=== PATIENT | male | born 1965 | race Caucasian/White ===

== ENCOUNTER 2023-05-11 12:54 | Inpatient (IN) | payer MEDICAID ==
[~2023-05-11] VITALS: Ht 157.5 cm; Wt 89.0 kg
[~2023-05-11 12:54] MED LIST: AMIO200T68 PO; APIX5TAB PO; DIGO125T72 PO; METO25XL PO
[2023-05-11 13:48] LABS: BASOPHILS % (AUTO) 0.8 % (0.0-2.0); EOSINOPHILS % (AUTO) 0.7 % (1.0-6.0); HEMATOCRIT 40.2 % (41-53); LYMPHOCYTES % (AUTO) 10.9 % (22.0-44.0); MEAN CORPUSCULAR HEMOGLOBIN 29.4 pg (26.0-34.0); MEAN CORPUSCULAR HGB CONC 32.2 G/dL (31.0-37.0); MEAN CORPUSCULAR VOLUME 91 fL (80-100); MONOCYTES % (AUTO) 10.5 % (2.0-9.0); NEUTROPHILS # (AUTO) 7.3 K/uL (1.8-7.7); NEUTROPHILS % (AUTO) 77.1 % (40.0-70.0); PLATELET COUNT (AUTO) 290 K/uL (150-450); RED CELL DISTRIBUTION WIDTH 16.6 % (11.5-14.5); WHITE BLOOD COUNT (AUTO) 9.5 K/uL (4.5-11.0)
[2023-05-11 13:58] LABS: ANION GAP 12 mmol/L (8-16); CALCIUM, TOTAL 7.9 mg/dL (8.8-10.5); CARBON DIOXIDE 21 mmol/L (22-29); CHLORIDE 104 mmol/L (98-107); CREATININE 1.09 mg/dL (0.60-1.30); GLOMERULAR FILTR. RATE CALC > 60 mL/min (>60); GLUCOSE,RANDOM 147 mg/dL (70-110); POTASSIUM 3.3 mmol/L (3.5-5.1); SODIUM SERUM 137 mmol/L (136-145); UREA NITROGEN, BLOOD 11 mg/dL (7-18)
[2023-05-11 14:04] LABS: ALANINE AMINOTRANSFERASE 24 U/L (12-78); ALBUMIN 2.8 g/dL (3.4-5.0); ALKALINE PHOSPHATASE 166 U/L (46-116); ASPARTATE AMINOTRANSFERASE 35 U/L (15-37); BILIRUBIN,TOTAL 1.2 mg/dL (0.1-1.0); TOTAL PROTEIN, SERUM 6.1 g/dL (6.4-8.2)
[2023-05-11 14:05] LABS: TROPONIN I-HIGH SENSITIVITY 15 ng/L (<76)
[2023-05-11 14:08] LABS: ALCOHOL, BLOOD (SERUM) < 3 mg/dL (0-10); LACTIC ACID 3.3 mmol/L (0.4-2.0)
[2023-05-11 14:53] LABS: INR 1.5 (0.9-1.1); PROTHROMBIN TIME 15.5 SEC (9.4-11.6)
[2023-05-11] MEDS ORDERED: FUROSEMIDE 40 MG/4 ML VIAL IVP ONE (15:30)
[2023-05-11] MEDS ORDERED: LORazepam 2 MG/ML VIAL IVP PRN (15:45)
[2023-05-11] MEDS ORDERED: ACETAMINOPHEN 325 MG TABLET PO PRN (15:45)
[2023-05-11] MEDS ORDERED: ONDANSETRON HCL 4 MG/2 ML VIAL IVP PRN (15:45)
[2023-05-11] MEDS ORDERED: POTASSIUM CHLORIDE 20 MEQ ER TABLET PO PRN (15:45)
[2023-05-11] MEDS ORDERED: POTASSIUM CHL 10 MEQ/WATER 50 ML IV PRN (15:45)
[2023-05-11] MEDS ORDERED: DEXTROSE 50%-WATER 25 GM/50 ML SYRINGE IVP PRN (16:00)
[2023-05-11] MEDS: CefTRIAXone 1 GM/DEXTROSE 50 ML IV SCH (16:05)
[2023-05-11] MEDS: MULTIVITAMINS WITH MINERALS, THERAPEUTIC TABLET PO SCH (16:05)
[2023-05-11 16:52] LABS: COVID AG,FIA SOURCE NASAL SWAB
[2023-05-11 16:59] LABS: APPEARANCE,URINE CLEAR (CLEAR); BILIRUBIN,URINE NEGATIVE (NEGATIVE); COLOR,URINE YELLOW (YELLOW); GLUCOSE, URINE (UA) NEGATIVE (NEGATIVE); KETONES,URINE NEGATIVE (NEGATIVE); LEUKOCYTE ESTERASE ,URINE NEGATIVE (NEGATIVE); NITRATE,URINE NEGATIVE (NEGATIVE); OCCULT BLOOD,URINE NEGATIVE (NEGATIVE); PH,URINE 5.5 (5.0-8.0); PROTEIN,URINE 30-70 mg/dL (NEGATIVE)
[2023-05-11 17:05] LABS: ALCOHOL, URINE DRUG SCREEN NEGATIVE (NEGATIVE); AMPHET/METH SCREEN,URINE NEGATIVE (NEGATIVE); BARBITURATE SCREEN, URINE NEGATIVE (NEGATIVE); BENZODIAZEPINES SCREEN,URINE NEGATIVE (NEGATIVE); CANNABINOID SCREEN,URINE NEGATIVE (NEGATIVE); COCAINE SCREEN,URINE NEGATIVE (NEGATIVE); METHADONE SCREEN, URINE NEGATIVE (NEGATIVE); OPIATE SCREEN,URINE NEGATIVE (NEGATIVE); PH,URINE DRUG SCREEN 5.5 (5.0-8.0); PHENCYCLIDINE SCREEN,URINE NEGATIVE (NEGATIVE)
[2023-05-11 17:17] LABS: SARS-COV2 (COVID) ANTIGEN,FIA Negative (Negative)
[2023-05-11 19:16] LABS: GLUCOMETER DEV NAME(LOC) ER.6; GLUCOSE,POINT OF CARE 136 MG/DL (70-110)
[2023-05-11] MEDS: DOCUSATE SODIUM 100 MG CAPSULE PO SCH (20:40)
[2023-05-11] MEDS: FAMOTIDINE 20 MG TABLET PO SCH (20:40)
[2023-05-11 21:26] VITALS: BP 101/74; PULSE 121; RESP 20; TEMP 97.8
[2023-05-11 23:11] LABS: GLUCOMETER DEV NAME(LOC) 5N.2C; GLUCOSE,POINT OF CARE 96 MG/DL (70-110)
[2023-05-12 00:03] VITALS: BP 109/78; PULSE 103; RESP 20; TEMP 97.5
[2023-05-12 04:30] VITALS: BP 118/83; PULSE 112; RESP 20; TEMP 97.9
[2023-05-12 07:08] LABS: ANION GAP 7 mmol/L (8-16); CALCIUM, TOTAL 8.1 mg/dL (8.8-10.5); CARBON DIOXIDE 26 mmol/L (22-29); CHLORIDE 100 mmol/L (98-107); CREATININE 0.88 mg/dL (0.60-1.30); GLOMERULAR FILTR. RATE CALC > 60 mL/min (>60); GLUCOSE,RANDOM 79 mg/dL (70-110); POTASSIUM 3.5 mmol/L (3.5-5.1); SODIUM SERUM 133 mmol/L (136-145); UREA NITROGEN, BLOOD 10 mg/dL (7-18)
[2023-05-12 07:59] VITALS: BP 111/76; PULSE 113; RESP 19; TEMP 98.3
[2023-05-12] MEDS: DOCUSATE SODIUM 100 MG CAPSULE PO SCH ×2 (09:20→21:12)
[2023-05-12] MEDS: FAMOTIDINE 20 MG TABLET PO SCH ×2 (09:20→21:12)
[2023-05-12] MEDS: MULTIVITAMINS WITH MINERALS, THERAPEUTIC TABLET PO SCH (09:20)
[2023-05-12 11:37] VITALS: BP 122/86; PULSE 119; RESP 18; TEMP 98.1
[2023-05-12 11:57] LABS: GLUCOMETER DEV NAME(LOC) 5N.2C; GLUCOSE,POINT OF CARE 89 MG/DL (70-110)
[2023-05-12] MEDS ORDERED: PERFLUTREN PROTEIN-A MICROSPHERES 0.22 MG/ML 3 ML VIAL IVP ONE (14:00)
[2023-05-12 16:06] VITALS: BP 105/69; PULSE 89; RESP 18; TEMP 98
[2023-05-12] MEDS ORDERED: SODIUM CHLORIDE 0.9% 250 ML IV ONE (16:14)
[2023-05-12] MEDS: CefTRIAXone 1 GM/DEXTROSE 50 ML IV SCH (16:15)
[2023-05-12] MEDS: INSULIN LISPRO 100 UNITS/ML SQ PRN ×2 (17:55→21:13)
[2023-05-12] MEDS ORDERED: AMIODARONE HCL 150 MG in DEXTROSE 5%-WATER 97 ML IV ONE (18:00)
[2023-05-12] MEDS ORDERED: FUROSEMIDE 20 MG/2 ML VIAL IVP ONE (18:15)
[2023-05-12] MEDS ORDERED: AMIODARONE HCL 360 MG in DEXTROSE 5%-WATER 242.8 ML IV ONE (18:15)
[2023-05-12 19:56] VITALS: BP 109/79; PULSE 125; RESP 18; TEMP 98
[2023-05-12 20:06] LABS: GLUCOMETER DEV NAME(LOC) 5N.2C; GLUCOSE,POINT OF CARE 121 MG/DL (70-110)
[2023-05-12] MEDS: APIXABAN 5 MG TABLET PO SCH (21:12)
[2023-05-13 00:01] VITALS: BP 110/80; PULSE 130; RESP 20; TEMP 97.6
[2023-05-13] MEDS ORDERED: AMIODARONE HCL 540 MG in DEXTROSE 5%-WATER 239.2 ML IV ONE (00:15)
[2023-05-13 05:01] VITALS: BP 107/75; PULSE 63; RESP 18; TEMP 98.7
[2023-05-13] MEDS: INSULIN LISPRO 100 UNITS/ML SQ PRN ×2 (06:04→17:45)
[2023-05-13 06:53] LABS: ANION GAP 9 mmol/L (8-16); CARBON DIOXIDE 25 mmol/L (22-29); CHLORIDE 100 mmol/L (98-107); CREATININE 0.82 mg/dL (0.60-1.30); GLUCOSE,RANDOM 138 mg/dL (70-110); POTASSIUM 3.2 mmol/L (3.5-5.1); SODIUM SERUM 134 mmol/L (136-145); UREA NITROGEN, BLOOD 13 mg/dL (7-18)
[2023-05-13 06:54] LABS: CALCIUM, TOTAL 7.8 mg/dL (8.8-10.5); GLOMERULAR FILTR. RATE CALC > 60 mL/min (>60)
[2023-05-13 07:03] LABS: GLUCOMETER DEV NAME(LOC) 5N.1C; GLUCOSE,POINT OF CARE 146 MG/DL (70-110)
[2023-05-13 07:03] LABS: GLUCOMETER DEV NAME(LOC) 5N.1C; GLUCOSE,POINT OF CARE 196 MG/DL (70-110)
[2023-05-13 07:22] LABS: GLUCOMETER DEV NAME(LOC) 5N.2C; GLUCOSE,POINT OF CARE 154 MG/DL (70-110)
[2023-05-13 07:45] VITALS: BP 120/87; PULSE 109; RESP 20; TEMP 98
[2023-05-13] MEDS ORDERED: METOPROLOL SUCCINATE 25 MG ER TABLET PO SCH (09:00)
[2023-05-13] MEDS: DOCUSATE SODIUM 100 MG CAPSULE PO SCH ×2 (09:30→21:12)
[2023-05-13] MEDS: APIXABAN 5 MG TABLET PO SCH ×2 (09:30→21:12)
[2023-05-13] MEDS: LOSARTAN POTASSIUM 25 MG TABLET PO SCH (09:30)
[2023-05-13] MEDS: MULTIVITAMINS WITH MINERALS, THERAPEUTIC TABLET PO SCH (09:30)
[2023-05-13] MEDS: FAMOTIDINE 20 MG TABLET PO SCH ×2 (09:30→21:12)
[2023-05-13] MEDS: SPIRONOLACTONE 25 MG TABLET PO SCH (09:30)
[2023-05-13] MEDS: DIGOXIN 125 MCG TABLET PO SCH (09:30)
[2023-05-13 11:21] VITALS: BP 113/85; PULSE 115; RESP 18; TEMP 98.5
[2023-05-13 15:23] VITALS: BP 105/81; PULSE 109; RESP 18; TEMP 98.4
[2023-05-13] MEDS: CefTRIAXone 1 GM/DEXTROSE 50 ML IV SCH (16:47)
[2023-05-13] MEDS ORDERED: AMIODARONE HCL 750 MG in DEXTROSE 5%-WATER 485 ML IV SCH (18:15)
[2023-05-13 19:52] LABS: GLUCOMETER DEV NAME(LOC) 5N.1C; GLUCOSE,POINT OF CARE 156 MG/DL (70-110)
[2023-05-13 19:52] LABS: GLUCOMETER DEV NAME(LOC) 5N.1C; GLUCOSE,POINT OF CARE 124 MG/DL (70-110)
[2023-05-13 20:00] VITALS: BP 100/81; PULSE 107; RESP 19; TEMP 98.5
[2023-05-14 01:45] VITALS: BP 100/73; PULSE 110; RESP 20; TEMP 98.2
[2023-05-14 04:00] VITALS: BP 106/73; PULSE 109; RESP 19; TEMP 98.3
[2023-05-14 06:06] VITALS: BP 123/81; PULSE 108; RESP 20; TEMP 98.5
[2023-05-14 06:46] LABS: GLUCOMETER DEV NAME(LOC) 5N.1C; GLUCOSE,POINT OF CARE 121 MG/DL (70-110)
[2023-05-14 07:15] LABS: ANION GAP 13 mmol/L (8-16); CALCIUM, TOTAL 7.7 mg/dL (8.8-10.5); CARBON DIOXIDE 21 mmol/L (22-29); CHLORIDE 99 mmol/L (98-107); CREATININE 1.17 mg/dL (0.60-1.30); GLOMERULAR FILTR. RATE CALC > 60 mL/min (>60); GLUCOSE,RANDOM 133 mg/dL (70-110); POTASSIUM 4.2 mmol/L (3.5-5.1); SODIUM SERUM 133 mmol/L (136-145); UREA NITROGEN, BLOOD 20 mg/dL (7-18)
[2023-05-14 07:39] VITALS: BP 111/83; PULSE 105; RESP 17; TEMP 98.6
[2023-05-14] MEDS: DIGOXIN 125 MCG TABLET PO SCH (08:17)
[2023-05-14] MEDS: DOCUSATE SODIUM 100 MG CAPSULE PO SCH (08:17)
[2023-05-14] MEDS: SPIRONOLACTONE 25 MG TABLET PO SCH (08:19)
[2023-05-14] MEDS: FAMOTIDINE 20 MG TABLET PO SCH (08:19)
[2023-05-14] MEDS: APIXABAN 5 MG TABLET PO SCH (08:19)
[2023-05-14] MEDS: MULTIVITAMINS WITH MINERALS, THERAPEUTIC TABLET PO SCH (08:19)
[2023-05-14] MEDS: LOSARTAN POTASSIUM 25 MG TABLET PO SCH (08:20)
[2023-05-14] MEDS ORDERED: AMIODARONE HCL 200 MG TABLET PO SCH (09:00)
[2023-05-14] MEDS ORDERED: METOPROLOL SUCCINATE 25 MG ER TABLET PO SCH (09:00)
[2023-05-14] MEDS ORDERED: LOSA-417 PO (11:14)
[2023-05-14] MEDS ORDERED: METO25XL PO (11:14)
[2023-05-14] MEDS ORDERED: APIX5TAB PO (11:14)
[2023-05-14] MEDS ORDERED: AMIO200 PO (11:14)
[2023-05-14] MEDS ORDERED: SPIR-37 PO (11:14)
[2023-05-14] MEDS ORDERED: DIGO125T84 PO (11:14)
[2023-05-14 11:31] VITALS: BP 114/84; PULSE 90; RESP 18; TEMP 98
[2023-05-14 21:26] LABS: GLUCOMETER DEV NAME(LOC) 5N.2C; GLUCOSE,POINT OF CARE 118 MG/DL (70-110)
== END 2023-05-14 12:40 | disposition home or self-care (01) | DRG 280 ==
LOC: EMS 13:01 → 5S 17:25
PROVIDERS: ADMIT Internal Medicine; ATTEND Internal Medicine
PROC: 0W9G3ZZ Drainage of Peritoneal Cavity, Percutaneous Approach (ICD-10-PCS; principal; 2023-05-12)
DX: K70.31 Alcoholic cirrhosis of liver with ascites (principal); I50.23 Acute on chronic systolic (congestive) heart failure; I48.19 Other persistent atrial fibrillation; D68.9 Coagulation defect, unspecified; E87.1 Hypo-osmolality and hyponatremia; I48.92 Unspecified atrial flutter; Z20.822 Contact with and (suspected) exposure to COVID-19; I11.0 Hypertensive heart disease with heart failure; F10.139 Alcohol abuse with withdrawal, unspecified; E87.6 Hypokalemia; E11.9 Type 2 diabetes mellitus without complications; I08.3 Combined rheumatic disorders of mitral, aortic and tricuspid valves; Z91.199 Patient's noncompliance with other medical treatment and regimen due to unspecified reason
CPT/HCPCS: 49083; 71045; 76705; 76942; 80048; 80053; 80307; 81003; 82962; 83605; 83880; 84484; 85025; 85610; 85730; 87040; 87081; 93005; 93306; 99285; C8924; G0480; J0282; J0696; J1940; J2405; J7050; J7060; Q9967; 36415-L1; 36415-TC

== ENCOUNTER 2025-03-27 02:25 | Emergency (ER) | payer MEDICAID ==
[~2025-03-27] VITALS: Ht 157.5 cm; Wt 87.3 kg
[~2025-03-27 02:25] MED LIST changes: -AMIO200T68 PO; +AMIO200T74 PO; -DIGO125T72 PO; +DIGO125T84 PO; +LOSA-417 PO; +SPIR-37 PO
[2025-03-27 02:36] VITALS: BP 157/93; PULSE 94; RESP 16; TEMP 97.9; O2SAT 98
== END 2025-03-27 04:15 | disposition still patient (30) ==
LOC: EMS 02:25
DX: R21 Rash and other nonspecific skin eruption (principal); Z53.21 Procedure and treatment not carried out due to patient leaving prior to being seen by health care provider